=== PATIENT | female | born 1965 | race Caucasian/White ===

== ENCOUNTER → 2025-05-02 | Outpatient (CLI) | payer BC ==
--- NOTE | 2025-05-02 15:24 | MR ---
INDICATION: Patient age:Female; 59 years old; Reason for study: M54.31 R SIDE SCIATICA; PHH. COMPARISONS: No priors. TECHNIQUE: Multi planar, multi sequence imaging was performed utilizing: T1-weighted, T2-weighted, a nd turbo inversion recovery imaging of the lumbar spine. The patient was not given contrast. FINDINGS: The lumbar vertebral bodies do have preserved heights and alignment. Minimal levocurvature of the lumbar spine. Multilevel disc desiccation is present. Type II Modic changes most prominently involving the endplates around the L4-L5 disc. There is associated subchondral cystic changes. Addit ional multilevel regions of subchondral cystic change. T1/T2 hyperintense benign vertebral hemangioma involving the T12 vertebral body. The conus medullaris and the distal spinal cord do appear unremark able with regards to their signal intensity and morphology. Incidental small S2 Tarlov cyst. T12-L1: No significant disc pathology is identified. The spinal canal and neural foramen are patent L1-L2: No significant disc pathology is identified. The spinal canal and neural foramen are patent. L2-L3: No significant disc pathology is identified. The spinal canal and neural foramen are patent. L3-L4: Broad-based disc bulge with ligamentum flavum buckling and bilateral facet arthropathy. Contr ibutes to minimal spinal canal stenosis. Mild left neural foraminal stenosis. The right neural forame n is patent L4-L5: Broad-based disc bulge. Minimal effacement of the anterior thecal sac. No significant spinal c anal stenosis. Bilateral facet arthropathy. No significant neuroforaminal stenosis. L5-S1: The intervertebral disc appears round on its contour posteriorly without significant mass eff ect upon the thecal sac. Facet joints are enlarged. Mild bilateral neural foraminal stenosis. Other significant findings: None. IMPRESSION: 1. No definitive evidence for disc herniation or significant spinal canal stenosis. 2. Multilevel disc degeneration with associated osteoarthritic changes. [facility], , 05/02/2025 3:21 PM
== END | disposition home or self-care (01) ==
LOC: RADMRIMAIN 14:29
PROVIDERS: ATTEND Emergency Medicine
DX: M54.31 Sciatica, right side (principal); M51.360 Other intervertebral disc degeneration, lumbar region with discogenic back pain only; M47.816 Spondylosis without myelopathy or radiculopathy, lumbar region
CPT/HCPCS: 72148